=== PATIENT | male | born 1945 | race Caucasian/White ===

== ENCOUNTER 2025-01-28 06:53 | Day surgery (SDC) | payer OTHER, SELFPAY ==
[2025-01-28 07:59] VITALS: BMI 34.7
--- NOTE | 2025-01-28 09:43 | ITS.CL.CARDI ---
Development Analyst - Cardioversion
Cardioversion
Procedure Report:
Procedure: DEEDEE-guided electrical cardioversion
Pre-operative diagnosis: Persistent atrial fibrillation
Post-operative diagnosis: Persistent atrial fibrillation status post DC cardioversion to sinus rhythm
Anesthesia: MAC
Attending Physician: Carrillo Mccullough MD
Procedure Description: The patient was brought to the electrophysiology laboratory in the fasting state. Informed consent was obtained from the patient prior to the start of the procedure. Adherence to anticoagulation was confirmed. Electrodes were
placed on the patient and connected to an external defibrillator. Monitoring of blood pressure, ECG tracings, and pulse oximetry was initiated. The pads were applied to the patient in the anterior and posterior positions. The patient was sedated by
the anesthesiologist. A DEEDEE (reported separately) was performed prior to the cardioversion. No left atrial or left atrial appendage thrombus was seen. After the DEEDEE probe was removed, a 200 joule biphasic synchronized shock was delivered to the
patient under MAC anesthesia. Sinus rhythm was successfully restored. The patient recovered uneventfully from MAC anesthesia. There were no immediate post-procedure complications. The patient left the lab in good condition. The attending physician
was present throughout the entire procedure.
Impression: Successful DEEDEE-guided direct current cardioversion with druze of sinus rhythm after one 200 joule biphasic synchronized shock.
== END 2025-01-28 09:00 | disposition home or self-care (01) ==
LOC: CATH 06:53
PROVIDERS: ATTENDING PHYSICIAN Internal Medicine Cardiovascular Disease; FAMILY PHYSICIAN Physician Assistant; OTHER PHYSICIAN Internal Medicine Cardiovascular Disease
DX: I48.19 Other persistent atrial fibrillation (principal); I08.3 Combined rheumatic disorders of mitral, aortic and tricuspid valves; I44.0 Atrioventricular block, first degree; I70.0 Atherosclerosis of aorta; Z79.01 Long term (current) use of anticoagulants
CPT/HCPCS: 93312; 93320; 93325; 92960; 93005